=== PATIENT | female | born 1980 | race Caucasian/White ===

== ENCOUNTER → 2017-11-19 12:38 | Outpatient (CLI) | payer SELFPAY ==
[2017-11-19 13:52] LABS: hCG Titer Quant., Serum 43 mIU/mL (<9 non-preg)
== END ==
PROVIDERS: Family Provider Family Medicine; PCP Family Medicine; Visit Provider Obstetrics & Gynecology
DX: Z34.90 Encounter for supervision of normal pregnancy, unspecified, unspecified trimester (principal); Z3A.00 Weeks of gestation of pregnancy not specified
CPT/HCPCS: 36415; 84702

== ENCOUNTER → 2017-11-21 08:42 | Outpatient (CLI) | payer SELFPAY ==
[2017-11-21 09:44] LABS: hCG Titer Quant., Serum 161 mIU/mL (<9 non-preg)
== END ==
PROVIDERS: Family Provider Family Medicine; PCP Family Medicine; Visit Provider Obstetrics & Gynecology
DX: Z34.90 Encounter for supervision of normal pregnancy, unspecified, unspecified trimester (principal); Z3A.00 Weeks of gestation of pregnancy not specified
CPT/HCPCS: 36415; 84702

== ENCOUNTER 2017-12-07 19:52 | Emergency (ER) | payer SELFPAY ==
[2017-12-07 19:53] VITALS: BP 149/77; PULSE 80; RESP 16; TEMP 36.8; O2SAT 99; BMI 27.9
[2017-12-07 22:08] LABS: hCG Titer Quant., Serum 745 mIU/mL (<9 non-preg)
--- NOTE | 2017-12-07 22:29 | ED.DCSUM_ITS ---
- ER Visit Summary Date of Service: 12/07/17 Chief Complaint: and vaginal bleeding History of Present Illness: The patient is a 36 F G 13 P3 Ab9 and 1 ectopic. Patient is early and started having vaginal bleeding today. Past clots and some white tissue. She has had multiple prior miscarriages. She does not believe she is ever been worked up for clotting disorder. She denies any pain. She denies any dysuria. She denies any fever. Physical Examination: Very well-appearing female. Vital signs are stable afebrile. She is in no distress. HEENT exam is unremarkable. Neck nontender no lymphadenopathy. Lungs clear to auscultation bilaterally. Heart regular rhythm no murmur. Abdomen is soft and nontender. Nondistended. Normal bowel sounds. Absolutely no peritoneal signs. Absolutely nontender. She is moving all 4 extremities. Calves are nontender. No edema. Neurologically she is awake and alert with no focal motor deficits. Test Results: Patient's blood type is O+. From prior labs. Her quantitative hCG is only 745. Emergency Department Course and Treatment: We will repeat exams patient had small amount of bleeding and passed more tissue. Again she still not having any pain. Treatment Plan: I spoke with Dr. Ismael Mancera. She will follow the patient up as an outpatient early next week. Again she had the patient discuss further evaluation for why the patient is having multiple miscarriages. Disposition: Discharge Impression: Acute with vaginal bleeding secondary to miscarriage This note was generated with [employer] dictation software. It may contain incorrect words, spelling, and punctuation that were not noted in review of the chart prior to signing ED Disposition - Plan for ED Patient: Chief Complaint: Vag Bld, Preg Referrals: Claude Savage [Primary Care Provider] -
--- NOTE | 2017-12-07 22:29 | ED.DEP ---
ED Disposition - Plan for ED Patient: Disposition: Home or Assisted Living Chief Complaint: Vag Bld, Preg Instructions: ED Miscarriage Incom Referrals: Sharon Jones MD [STAFF PHYSICIAN] - As soon as possible Additional Instructions: Plenty fluids and rest. Motrin Tylenol for pain. Call follow-up Dr. Jones early this coming week. Return to the ER if severe pain, fever or very heavy vaginal bleeding. Most likely this is secondary to another miscarriage. Karen will follow your hormone levels. You need to discuss with her possible further evaluation for why you are having all these miscarriages.
[2017-12-07 22:35] VITALS: BP 114/70; PULSE 64; RESP 18; O2SAT 100
== END 2017-12-07 22:35 | disposition home or self-care (01) ==
PROVIDERS: Emergency Provider Emergency Medicine; Family Provider Family Medicine; PCP Family Medicine
DX: O03.9 Complete or unspecified spontaneous abortion without complication (principal); N96 Recurrent pregnancy loss; O09.529 Supervision of elderly multigravida, unspecified trimester; O09.40 Supervision of pregnancy with grand multiparity, unspecified trimester; Z3A.00 Weeks of gestation of pregnancy not specified
CPT/HCPCS: 84702; 99282

== ENCOUNTER 2022-09-29 13:39 | Emergency (ER) | payer MEDICAID, SELFPAY ==
[2022-09-29 13:40] VITALS: BP 190/96; PULSE 97; RESP 16; TEMP 36.7; O2SAT 100; BMI 28.3
[2022-09-29 15:09] VITALS: BP 180/92; PULSE 80
[2022-09-29 15:31] LABS: Hemoglobin 12.1 g/dL (12.0-15.0); Mean Corp Hgb Conc 32.7 g/dL (32-36); Mean Corpuscular Hgb 29.7 pg (27.0-32.0); Mean Corpuscular Volume 90.9 fL (81-99); Mean Platelet Vol. 8.8 fl (6.2-12.0); Platelet Count 293 K/mm3 (150-450); RBC Distribution Width CV 13.4 % (11.6-14.6); RBC Distribution Width SD 44.7 fl (35.1-43.9); Red Blood Count 4.07 M/mm3 (4.2-5.4); White Blood Count 8.9 K/mm3 (4.4-11.0)
--- NOTE | 2022-09-29 15:31 | US_ITS ---
INDICATION: Vaginal bleeding, enlarged uterus -- HX ENDOMETRIOSIS AND DERMOID CYST -- RIGHT OOPHORECTOMY EXAMINATION: Ultrasound US Transvaginal Non-OB TECHNIQUE: Transvaginal (for optimal evaluation of the adnexa) pelvic ultrasound was performed. Grayscale, spectral waveform, and color flow Doppler evaluation of the adnexa. COMPARISON: None. FINDINGS: UTERUS: Anteverted. The uterus appears heterogeneous and measures 9.9 x 5.4 x 4.8 cm and is tilts to the right. There is no uterine mass. The endometrial stripe is striated and measures 11.3 in AP diameter. Nabothian cysts. RIGHT OVARY: Surgically absent. LEFT OVARY: 5.3 x 4.8 x 4.1 cm. 4.9 x 4.6 x 3.9 cm heterogeneous ovarian cyst. There is normal arterial inflow and venous outflow present in the left ovary. FREE FLUID: None. US/Transvaginal Non- IMPRESSION: 4.9 cm left ovarian cyst may represent endometrioma versus dermoid. Heterogeneous uterine echotexture suggests adenomyosis. Electronically Signed: Kevin Camilo MD at 17:12 EST ,
[2022-09-29 15:47] VITALS: BP 155/100; BP 172/97; BP 174/92; PULSE 71; PULSE 72; PULSE 78
[2022-09-29 15:56] LABS: Internal QC Validated? YES +Cl - CLEAR BKGD; Pregnancy, Serum, hCG Quali. NEGATIVE Negative
--- NOTE | 2022-09-29 16:06 | ED.VIS.FEGU ---
HPI HPI - Female History of Present Illness Chief Complaint: Vag Bleeding Detail of Chief Complaint: Vaginal bleeding x11 days Informant: patient Bleeding Issue: Positive for Vaginal bleeding and Passing clots Onset: Days (Onset 11 days ago) Context: Sudden Onset Timing: Continuous and Waxes and wanes Current Severity: Heavy and - (Patient reports she has gone through 72 pads over the past 11 days.) Maximum Severity: Heavy Associated Symptoms Associated Symptoms: Negative for Dysuria, Frequency, Urgency, Hematuria or Missed Period Last known menstrual period: Menses should have started 11 days ago. Sexually: Positive for Active Control: No control Narrative Narrative: Patient is a 41-year-old woman who presents because of vaginal bleeding, lightheadedness, fatigue and dyspnea on exertion. She has had high blood pressure for several months. She is on no medication. She states her neuroradiologist Dr. Sharon Jones. She is status post left salpingo-oophorectomy. She does not use any form of control. She is sexually active with her . Prior similar symptoms: No Recent Illness/Hospitalization: No PFSH PFS Medical History Hypertension Home Medications vits,calcium no.78-iron fumarate-folic acid 29 mg-1 mg tablet (Prenatabs FA) 1 tab PO DAILY 06/27/15 [History Last Taken 12/07/17 one] methylergonovine 0.2 mg tablet (Methergine) 0.2 mg PO TID 5 days #15 tabs 09/29/22 [Rx Last Taken Unknown] Allergy/AdvReac Type Severity Reaction Status Date / Time No Known Allergies Allergy Verified 09/29/22 13:39 Social History (Updated 09/29/22 @ 16:[address] Nimesh Hussein MD) household members: spouse and children Smoking Status: Never smoker substance use type: does not use ROS ROS ED Constitutional Constitutional ED: Denies chills, fever(s), subjective or sweats Eyes Eyes: Denies blurry vision, change in vision or diplopia ENT ENT ED: Denies ear pain, rhinorrhea or sore throat Cardiovascular Cardiovascular: Denies chest pain, orthopnea, palpitations, paroxysmal nocturnal dyspnea or racing heartbeat Respiratory/Chest Respiratory/Chest: Reports dyspnea on exertion; Denies cough, dyspnea, orthopnea, paroxysmal nocturnal dyspnea or sputum Gastrointestinal Gastrointestinal: Reports abdominal pain; Denies constipation, diarrhea, melena, nausea or vomiting Genitourinary Genitourinary ED: Denies dysuria, hematuria or urinary frequency Musculoskeletal Musculoskeletal: Denies arthralgias, myalgias or neck pain Integumentary Denies Abrasions or rash Neurologic Neurologic: Denies headache(s), paresthesias or weakness Psychiatric Psychiatric: Denies anxiety or depression Endocrine Endocrinology: Denies heat intolerance, polydipsia, polyphagia or polyuria Hematologic/Lymphatic Hematologic/Lymphatic: Denies easy bleeding or easy bruising EXAM Physical Exam Const Vital Signs: 09/29/22 13:40 09/29/22 15:09 09/29/22 15:47 Temperature 98.0 F Temperature Source Temporal Pulse Rate 97 80 Pulse Rate [Lying] 72 Pulse Rate [Sitting (for 1 minute prior to obtaining)] 71 Pulse Rate [Standing (for 1 minute prior to obtaining)] 78 Respiratory Rate 16 Blood Pressure 190/96 H 180/92 H Blood Pressure [Lying] 174/92 H Blood Pressure [Sitting (for 1 minute prior to obtaining)] 172/97 H Blood Pressure [Standing (for 1 minute prior to obtaining)] 155/100 H Blood Pressure Mean 127 121 Blood Pressure Mean [Lying] 119 Blood Pressure Mean [Sitting (for 1 minute prior to obtaining)] 122 Blood Pressure Mean [Standing (for 1 minute prior to obtaining)] 118 Pulse Ox 100 Oxygen Delivery Method Room Air Positive well nourished and well developed General Appearance ED: well developed and NAD; Negative for pallor HEENT Reports TM's clear and moist mucous membranes HEENT Narrative: Head is atraumatic normocephalic. Ears normal. TM normal. Nares patent. Uvula midline. Mucosa moist. Tympanic Membrane ED: Yes TM's clear Eyes PERRL and EOMs intact bilaterally General Eye ED: Negative for pale conjunctiva or scleral icterus Neck no lymphadenopathy, supple and no JVD Chest Wall inspection of chest normal and palpation of chest normal Resp normal respiratory effort and clear to auscultation bilaterally Cardio regular rate, regular rhythm, S1 normal heart sound, no murmurs and no JVD GI soft to palpation, non-distended and no masses; Negative for normal to inspection, nondistended, normoactive bowel sounds Auscultation: hypoactive bowel sounds Palpation: tender LLQ and suprapubic; Negative for hepatomegaly or splenomegaly Back/Spine no CVA tenderness Cervical Spine: Negative for cervical spine tenderness Thoracic Spine / Upper Back: Negative for thoracic spinal tenderness Lumbar Spine / Lower Back: Negative for lumbar spinal tenderness Extremity normal to inspection and full ROM Neuro oriented x3, CN's II-XII intact bilaterally and no sensory deficits noted Sensorium / Orientation: alert Motor Exam: strength 5/5 throughout Psych mental status grossly normal Skin no rashes or lesions noted and no wounds General Skin Exam: Negative for jaundice or pallor MDM MDM MDM Narrative Medical decision making narrative: With abnormal vaginal bleeding will obtain test. Will obtain H&H because patient complains of orthostatic symptoms as well as dyspnea on exertion. Orthostatic vitals were also obtained. Orthostatic vitals are negative. On pelvic exam uterus is tender and slightly enlarged. Patient is actively bleeding. There is no discomfort pressure against the bladder. There is no adnexal mass or fullness noted. Pelvic ultrasound was obtained because on physical exam the bladder felt enlarged and she had significant tenderness. Placed test, laboratory results and ultrasound was discussed with Hilaria nurse practitioner for Dr. Sharon Jones. Plan is Methergine 0.2 mg tablet 3 times a day for the next 5 days. She is to contact office first part of next week. Lab Data Attestation: I reviewed the patient's lab results. Labs: Laboratory Results - last 24 hr 09/29/22 09/29/22 15:23 15:40 WBC 8.9 RBC 4.07 L Hgb 12.1 Hct 37.0 MCV 90.9 MCH 29.7 MCHC 32.7 RDW Std Deviation 44.7 H RDW Coeff of Mehnaz 13.4 Plt Count 293 MPV 8.8 Serum , Qual NEGATIVE Radiography Diagnostic Testing: Clinical Impression(s) from Imaging Studies Transvaginal US 09/29/22 15:31 IMPRESSION: 4.9 cm left ovarian cyst may represent endometrioma versus dermoid. Heterogeneous uterine echotexture suggests adenomyosis. Electronically Signed: Kevin Camilo MD at 17:12 EST , Discharge Plan Triage Chief Complaint: Vag Bleeding ED Provider: Nimesh Hussein Dx/Rx/DC Orders Clinical Impression: Abnormal vaginal bleeding, Cyst of left ovary, Adenomyosis of uterus Instructions: ED Dysfunctional Uterine Bleeding Prescriptions: New methylergonovine [Methergine] 0.2 mg tablet 0.2 mg PO TID 5 Days Qty: 15 0RF No Action vit,[id number] [Prenatabs FA] 1 TABLET tablet 1 tab PO DAILY Primary Care Provider: Care Physician,No Primary Referrals: Sharon Jones MD [Med Staff - Active Staff] - 5-7 Days Care Physician,No Primary [Primary Care Provider] - Disposition Disposition: Home, Self Care
== END 2022-09-29 18:49 | disposition home or self-care (01) ==
PROVIDERS: Emergency Provider Emergency Medicine; Visit Provider Emergency Medicine
DX: N93.9 Abnormal uterine and vaginal bleeding, unspecified (principal); N83.202 Unspecified ovarian cyst, left side; I10 Essential (primary) hypertension; N80.03 Adenomyosis of the uterus; R06.09 Other forms of dyspnea; R10.9 Unspecified abdominal pain
CPT/HCPCS: 76830; 84703; 85027; 99284; A4216

== ENCOUNTER → 2022-11-23 | Outpatient (CLI) | payer MEDICAID, SELFPAY ==
[2022-11-23 16:31] LABS: AST(SGOT) 11 U/L (15-37); Alanine Aminotransfer ALT/SGPT 14 U/L (13-56); Albumin, Serum 3.5 g/dL (3.2-5.0); Alkaline Phosphatase 71 U/L (45-117); Anion Gap 6 (5-15); BUN 11 mg/dL (7-18); Chloride 109 mmol/L (98-107); Creatinine, Serum 0.78 mg/dL (0.55-1.02); EST Glomerular Filtration Rate 85 mL/min (>60); Est Glom Filt Rate - Afr Amer 103 mL/min (>60); Globulin 3.5 g/dL (2.2-4.2); Glucose 121 mg/dL (74-106); Potassium 3.8 mmol/L (3.5-5.1); Sodium Level 140 mmol/L (136-145); T4 Free Direct 0.78 ng/dL (0.76-1.46); Thyroid Stim Hormone (TSH) 1.02 uIU/mL (0.358-3.74)
[2022-12-01 09:09] LABS: Dilute Prothrombin Time (dPT) 35.7 sec (0.0-47.6); Dilute Russell Viper Venom 30.9 sec (0.0-47.0); Factor XI Activity 96 % (60-150); Thrombin Time 20.7 sec (0.0-23.0); dPT Confirm Ratio 0.92 Ratio (0.00-1.34)
[2022-12-01 13:31] LABS: Anti-Cardiolipin Ab, IgA, Qn < 9 APL U/mL (0-11); Anti-Cardiolipin Ab, IgG, Qn < 9 GPL U/mL (0-14); Anti-Cardiolipin Ab, IgM, Qn 11 MPL U/mL (0-12); Beta-2-Glycoprotein I IgA <9 (0-25); Beta-2-Glycoprotein I IgG <9 (0-20); Beta-2-Glycoprotein I IgM <9 (0-32); Factor VIII Activity 33 % (56-140); Interpretation Comment: (.); PTT-LA 40.1 sec (0.0-43.5)
== END | disposition home or self-care (01) ==
LOC: PAVLAB 15:12
PROVIDERS: Referring Provider Registered Nurse; Visit Provider Registered Nurse
DX: N96 Recurrent pregnancy loss (principal); N93.9 Abnormal uterine and vaginal bleeding, unspecified; Z87.59 Personal history of other complications of pregnancy, childbirth and the puerperium
CPT/HCPCS: 36415; 80053; 81240; 84439; 84443; 85240; 85245; 85270; 86146; 86147

== ENCOUNTER → 2023-01-08 | Outpatient (CLI) | payer MEDICAID, SELFPAY ==
--- NOTE | 2023-01-08 | EMB_PTH ---
PATIENT: MAR CURIEL LOC: [facility] #:[id number] AGE/SX: 42/F ROOM: RE01/08/[address]: KAVIN: 1980 BED: DIS: 01/08/2023 SPEC #: [id number] RECD: 01/08/23 16:57 STATUS: ROCHELLE DEBBI #: [id number] DICKSON: 01/08/23 00:[address]: Sharon Jones DEPT: SURGICAL PATHOLOGY RECD BY: Raúl Miranda ENTERED: 01/09/23 09:59 SP TYPE: ENDOM BX/C BRITTANY DR: Marichuy Primary Care Phys Tissues: Endometrium, NOS Procedures: Surgery Specimen Level IV Comments: @ Ordering doctor for SUIV edited from Danilo HERNANDEZ to @ by JEFFERY at 01/09/23 1500 @ Submitting doctor edited from Danilo HERNANDEZ to DR.SMARCA Reynolds by OSMINOD at 01/09/23 1500 HEADER OPERATION: Endometrial biopsy PRE-OP DIAGNOSIS: Abnormal uterine bleeding TISSUE SUBMITTED: Endometrial lining MICROSCOPIC DIAGNOSIS Endometrium, biopsy: Secretory endometrium. AM:michelet 01/10/2023 MICROSCOPIC DESCRIPTION Slides are reviewed. GROSS DESCRIPTION Received is one container labeled with the patient's name and not further designated. The specimen consists of multiple irregular fragments of pink hemorrhagic mucoid tissue that in aggregate measure 2.5 x 1.5 x 0.2 cm. The specimen is totally submitted in one cassette. / SJ:michelet 01/09/2023 TC:5 CPT: 28187
[2023-01-08 16:08] LABS: Hematocrit 40.8 % (37-47); Hemoglobin 13.1 g/dL (12.0-15.0); Mean Corp Hgb Conc 32.1 g/dL (32-36); Mean Corpuscular Hgb 29.3 pg (27.0-32.0); Mean Corpuscular Volume 91.3 fL (81-99); Mean Platelet Vol. 8.9 fl (6.2-12.0); Platelet Count 342 K/mm3 (150-450); RBC Distribution Width CV 14.6 % (11.6-14.6); RBC Distribution Width SD 48.8 fl (35.1-43.9); Red Blood Count 4.47 M/mm3 (4.2-5.4); White Blood Count 9.8 K/mm3 (4.4-11.0)
[2023-01-08 16:27] LABS: AST(SGOT) 12 U/L (15-37); Alanine Aminotransfer ALT/SGPT 18 U/L (13-56); Albumin, Serum 3.5 g/dL (3.2-5.0); Alkaline Phosphatase 89 U/L (45-117); Anion Gap 4 (5-15); BUN 14 mg/dL (7-18); Calcium,Total 8.6 mg/dL (8.5-10.1); Chloride 108 mmol/L (98-107); Creatinine, Serum 0.78 mg/dL (0.55-1.02); EST Glomerular Filtration Rate 86 mL/min (>60); Est Glom Filt Rate - Afr Amer 104 mL/min (>60); Ferritin 12 ng/mL (8-252); Globulin 3.6 g/dL (2.2-4.2); Glucose 106 mg/dL (74-106); Iron 49 ug/dL (50-170); Iron Binding Capacity,Total 349 ug/dL (250-450); Protein, Total 7.1 g/dL (6.4-8.2); Sodium Level 138 mmol/L (136-145)
[2023-01-10 11:17] LABS: Transferrin 297 mg/dL (192-364)
== END | disposition home or self-care (01) ==
PROVIDERS: Registered Nurse
DX: D69.6 Thrombocytopenia, unspecified (principal)
CPT/HCPCS: 36415; 80053; 82728; 83540; 83550; 84466; 85027; 85240; 85245; 87070; 87205; 88305

== ENCOUNTER 2023-01-23 05:25 | Day surgery (SDC) | payer MEDICAID, SELFPAY ==
[2023-01-21 12:57] LABS: Magnesium 2.3 mg/dL (1.6-2.6)
--- NOTE | 2023-01-21 17:25 | PCM.HP.BLA ---
History and Physical [facility] [address] [place] [address] OFFICE VISIT Date of Service:? 01/08/23 MR#: [id number] Acct: [id number] Name:MAR ARORA Rep #: [id number] : 1980 ? ? Provider: Dr. Sharon Jones MD Age/Sex:? 42/F ? ? Location: [facility] Status: Signed Intake Vital Signs ? 12/11/2310:55 01/08/2314:09 01/08/2314:11 Height 5 ft 1 in 5 ft 1 in 5 ft 1 in Weight: ? 167 lb ? BMI ? 31.5 ? BP ? 135/86 H ? Intake Visit Reasons:?LAVH left ovarian cystectomy/medicaid form Needle Valve Operator Required: No Is patient in pain?: No Allergies methylergonovine Allergy (Verified 01/08/23 14:10) Other Medications tranexamic acid 650 mg tablet (Lysteda) 650 mg PO Q8H #20 tabs 11/28/22 [Rx Confirmed 01/08/23] labetalol 100 mg tablet 200 mg PO BID #60 tabs 12/14/22 [Rx Confirmed 01/08/23] Post menopausal: No Patient : No : No [facility] Medical History?(Updated 01/08/23 @ 14:[address] Sharon Jones MD) Hypertension Surgical History? History of salpingo-oophorectomy S/P laparoscopy S/P laparotomy Family History? Grandmother Cervical cancer Social History? household members:? spouse and children number of children:? 3 current occupational exposures/hazards:? No sexually active:? Yes Smoking Status:? Never smoker alcohol intake:? never substance use type:? does not use what type of physical activity do you participate in:? walking seatbelt use:? always do you feel safe at home:? Yes additional social history:? spouse - Cy HPI LAVH left ovarian cystectomy/medicaid form Details: MAR CURIEL is a 42 year old who presents for preop appointment.? she was seen at [facility] and evaluated for willebrands disease and we will be getting recommendations this week regarding surgery.? she has a 4 cm left ovarian cyst possible endometrioma, has had multiple surgeries in the past for endometriosis and has peristent heavy menses failed lysteda. Female Reproductive History Last Menstrual Period: 11/07/22 Cycle Length: 21-35 Bleeding Duration: 7 Questions: metorrhagia: No, sexually active: Yes, dyspareunia: No and PCB: No Menopausal Symptoms: No hot flashes, No night sweats, No weight change, No mood changes, No difficulty concentrating, No sleep problems and No change in libido History ? ? ? 17 ? Elective abortions ? Hx Para ? ? ? 3 ? Spontaneous abortions ? Hx # Term Pregnancies ? Ectopic pregnancies ? Hx # Pregnancies ? Multiple births ? # of living children ? Past Pregnancies Del. Date Name GA/Weeks Outcome Route Bth Weight Gen Labor Lgth Anesthesia Del Locatn Provider FOB Unknown Janice - 1995 ? Unknown Vidal 2007 ? Unknown Sharon - 2014 ? ROS Const Constitutional: Denies night sweats ENT ENT: Reports system reviewed and no additional complaints, except as documented Cardio Card: Denies chest pain Resp Resp: Denies cough or dyspnea GI GI: Reports as per HPI; Denies constipation, nausea or vomiting : Denies hot flashes or nipple discharge Musc Musc: Denies arthralgias, back pain or muscle weakness Skin Skin/Breast: Denies alopecia, change in hair, dry skin, breast mass, breast pain, breast skin changes or nipple discharge Neuro Neuro: Reports system reviewed and no additional complaints, except as documented Psych Psych: Denies change in libido or difficulty concentrating Endo Endo: Denies cold intolerance, excessive sweating, heat intolerance or polydipsia Omar/Lymph Hematologic/Lymphatic: Denies easy bleeding, Denies easy bruising and Denies lymphadenopathy Exam Const General: cooperative, healthy appearing, comfortable, no acute distress and well developed Orientation: alert HENCO Head: normal to inspection and normocephalic Ears: hearing grossly normal bilaterally and external ears normal Nose: external nose normal and nares normal Face and sinus: normal facial exam Neck Neck: normal visual inspection and no lymphadenopathy Thyroid: thyroid normal Chest Chest palpation & inspection: normal inspection of the chest Resp Effort & Inspection: normal respiratory effort Auscultation: clear to auscultation bilaterally Cardio Rate: regular rate Rhythm: regular rhythm Heart Sounds: S1 normal and S2 normal GI Inspection: normal to inspection and non-distended Palpation: soft and no hepatosplenomegaly General: bladder normal to palpation External Female Exam: normal external appearance and normal appearance of the urethra Urethra: normal appearance of the urethra, normal palpation and no discharge Speculum Exam - Vagina: normal appearance of the vagina and normal vaginal discharge Speculum Exam - Cervix: normal appearance of the cervix and nontender Bimanual Exam- Vagina & Uterus: normal bimanual exam, uterine size normal, bladder normal to palpation, uterine shape normal, No tender, uterine mobility normal, consistency normal, normal palpation and non-tender Bimanual Exam- Adnexa, other: normal adnexae, adnexae mobile, no masses and normal Pelvic Support: normal Musc Other: gross motor intact no deficits, full bilateral strength Skin General: no rashes or lesions noted Neuro General: patient alert, patient awake, moves all extremities and no focal motor deficits Motor: muscle tone normal throughout Extrem General: normal to inspection and no pedal edema Psych Appearance: grossly normal Mental Status: mental status grossly normal Affect: normal affect Speech and Movement: speech and movement normal Office Procedures Endometrial Biopsy Endometrial Biopsy Test: Yes Negative Time out checklist: patient, procedure, site marked/identified, positioning of patient, supplies available, allergies confirmed and team agrees on procedure Time out time: 14:39 tenaculum used: No dilator used: No Details: Cervix prepped with betadine and pipelle inserted into uterus without complication. Specimen obtained and sent to lab for analysis. All instruments removed from vagina without complications. Excellent hemostasis noted. Coding Level of Care Code No Charge Diagnoses Von Willebrand disease? D68.00 Previous miscarriage without ? Z87.59 Endometriosis? N80.9 Hypertension? I10 CPT Codes Endometrial Biopsy (94672) Assessment and Plan Assessment and Plan (1) Von Willebrand disease: ?Status:?Acute ?Comment: hematology referral- [facility], await recommendations for clearance for surgery. (2) Previous miscarriage without : ?Status:?Acute ?Comment: APL panel negative (3) Endometriosis: ?Status:?Acute ?Comment: emb done. endometrioma 4 cm on left ovary, heavy painful menses, history of multiple laparoscopies.? proceed with LAVH left ovarian cystectomy possible oophorectomy. (4) Hypertension: ?Status:?Chronic ?Comment: on labetalol, told to increase to 200 BID and refer to PCP. stable. ? ? ? Orders: Orders Endometrial Biopsy Today N80.9 - Endometriosis, unspecified ? POC Urine Today N80.9 - Endometriosis, unspecified ? Plan After discussing the patient's diagnosis and treatment plan options, patient wishes to proceed with surgical management.? I have discussed with the patient the risks, benefits, and alternatives of the procedure which include but are not limited to risks of anesthesia, bleeding, infection, possible damage to bowel, bladder, or surrounding vasculature which could lead to additional surgery to evaluate any complications.? Patient agrees to procedure and wishes to proceed.? ACOG/uptodate references given for additional information regarding procedure.? plan to give 1000mg IV TXA prior to procedure within an hour per [facility] recommendations and TXA script given by them for postop care
[2023-01-23] VITALS (10 sets, daily range): BP systolic 115–156; BP diastolic 61–100; PULSE 60–81; RESP 16–18; TEMP 36.2–36.9; O2SAT 99–100; BMI 33.0
[2023-01-23] MEDS: Lactated Ringers 1,000 ML 40 ML IV (06:20)
[2023-01-23] MEDS: Magnesium 1 GM over 15 mins IV (06:21)
[2023-01-23 06:22] LABS: Absolute Lymphocyte Count 2.13 X10^3/uL (0.83-4.51); Absolute Neutrophil Count 4.4 X10^3/uL (2.0-7.7); Basophil# 0.05 X10^3/uL; Basophil% 0.7 % (0-1); Eosinophil# 0.39 X10^3/uL; Eosinophils% 5.2 % (0-5); Hematocrit 39.4 % (37-47); Hemoglobin 12.5 g/dL (12.0-15.0); Lymphocyte # 2.13 X10^3/ul (0.83-4.51); Lymphocyte % 28.6 % (19-41); Mean Corp Hgb Conc 31.7 g/dL (32-36); Mean Corpuscular Volume 91.4 fL (81-99); Mean Platelet Vol. 8.9 fl (6.2-12.0); Monocyte# 0.45 X10^3/uL; NRBC Flagged by Analyzer 0 % (0-5); Neutrophil # 4.41 X10^3/uL (2.7-7.7); Neutrophil % 59.4 % (47-70); Platelet Count 307 K/mm3 (150-450); RBC Distribution Width CV 15.9 % (11.6-14.6); RBC Distribution Width SD 53.6 fl (35.1-43.9); Red Blood Count 4.31 M/mm3 (4.2-5.4); White Blood Count 7.4 K/mm3 (4.4-11.0)
[2023-01-23] MEDS: Phenazopyridine 95 MG Tablet 190 MG PO (06:23)
[2023-01-23] MEDS: Acetaminophen 500 MG Tablet 1000 MG PO (06:24)
[2023-01-23] MEDS: Celecoxib 200 MG Capsule 400 MG PO (06:24)
[2023-01-23] MEDS: Scopolamine 1mg/72hr Patch 1 PATCH TD (06:25)
[2023-01-23] MEDS: Gabapentin 600 MG Tablet PO (06:25)
[2023-01-23 06:29] LABS: Internal QC Validated? YES +Cl - CLEAR BKGD; Pregnancy, Urine Negative Negative
[2023-01-23] MEDS: dexAMETHasone 4 MG/ML Vial 8 MG IV (06:36)
[2023-01-23 06:45] LABS: Bedside Glucose 102 mg/dL (74-106)
[2023-01-23] MEDS: Cefazolin 2 GM in 0.9% Normal Saline 100 ML IV (07:28)
--- NOTE | 2023-01-23 07:28 | OP.PCM_ITS ---
Problems Associated Problem List Diagnoses (1) Hypertension: (2) Von Willebrand disease: (3) Endometriosis: (4) Previous miscarriage without : (5) S/P laparoscopic assisted vaginal hysterectomy (LAVH): Report of Operation Date of Procedure: 01/23/23 Pre-Operative Diagnosis: AUB enodmetriosis Post-Operative Diagnosis: same Surgery/Procedure Performed:: ROSSY Description of Surgical Findings:: omental to anterior abdominal wall adhesions enlarged uterus pelvis congestion very thick tissue and increased vasculature Surgeon: Sharon Jones subway car repairer: Nida Rivera Type of Anesthesia: General Specimen's removed: uterus, left tube and ovary Drains: colin Fluids Replaced: crystalloid Description of Procedure: Patient received preoperative antibiotics and SCDs were on preoperatively. Patient was taken back to the operating room and placed in the dorsal lithotomy position. General anesthesia was induced and patient was prepped and draped in normal sterile fashion. Uterine manipulator was placed inside the uterus and Colin catheter placed in the bladder. The umbilicus was grasped with towel clamps and an intraumbilical incision was made after injecting with quarter percent Marcaine and a Veress needle entered into the abdomen confirmed to be intra-abdominal with a low opening pressure. Abdomen was insufflated with CO2 gas and the Veress needle removed and the 5 mm trocar was placed under direct visualization without complication. Right and left lower quadrants were transilluminated and injected with quarter percent Marcaine and 5 mm ports placed under direct visualization. Pelvis was well visualized see operative findings for additional information. left IP ligament was transected with the ligasure device and then carried down to the level of the uterine corpus, The broad ligament was opened up by transecting the round ligament bilaterally and skeletonizing the uterine vessels bilaterally and creating a bladder flap using the LigaSure device. The uterine arteries were transected bilaterally with good visualization of the bladder and the ureters were seen to be inferior lateral to the operative area. Attention was then paid to the vaginal portion of the procedure and the cervix was grasped with Cornelia clamps and circumferentially injected with dilute vasopressin. A circumferential incision was made and the vaginal mucosa was mobilized off posteriorly and the cul-de-sac entered into sharply and a longneck speculum placed. The anterior cul-de-sac was then identified and entered into sharply. The uterosacral ligaments were clamped cut and suture ligated with 0 Monocryl bilaterally followed by the cardinal ligaments which were clamped cut and suture ligated bilaterally with 0 Monocryl. The uterus serially descended and was removed without difficulty. Pelvic sidewall pedicles were checked and noted to have excellent hemostasis. posterior peritoneum closed and addditional suture of the right cuff was done for hemostasis. The vaginal mucosa was reapproximated incorporating the posterior peritoneum. This was reapproximated using 0 Vicryl [id number] sutures. Excellent hemostasis was noted. The pelvis and cul-de-sac were well visualized and no significant active bleeding noted but some raw areas over the bladder peritoneum were seen and therefore floseal was applied. Pressure was taken down and the areas visualized and noted of excellent hemostasis. All ports were removed under direct visualization without complication and the abdomen was desufflated of air. The instruments were removed from the abdomen and the vaginal sweep was negative. Port sites on the abdomen were closed with 4-0 Monocryl interrupted sutures and Steri's and windows were applied. She was awoken and taken recovery in stable condition. Grafts/Implants Used: none Complications none Admit VTE Documentation VTE Present on Admission: No VTE Mechan Device Prophylaxis: SCD's VTE Pharm Prophylaxis ordered?: Yes Procedures Urinary/Genital 52xxx-59xxx: 70417 LAVH+BS/O <250gr Uterus
--- NOTE | 2023-01-23 07:30 | HYST_PTH ---
PATIENT: MAR CURIEL [place] [facility] [id number] AGE/SX: 42/F ROOM: RE01/23/[address]: Dr. Sharon Jones MD : 1980 BED: DIS: 01/23/2023 SPEC #: [id number] RECD: 01/23/23 11:25 STATUS: ROCHELLE DEBBI #: [id number] DICKSON: 01/23/23 07:[address]: Sharon Jones DEPT: SURGICAL PATHOLOGY RECD BY: Carolynn Upton ENTERED: 01/23/23 12:05 SP TYPE: HYSTERECT OTHR DR: No Primary Care Phys Tissues: Uterus, NOS Procedures: Surgery Specimen Level V HEADER OPERATION: ERAS, hysterectomy, LAVH, oophorectomy, salpingectomy PRE-OP DIAGNOSIS: Von Willebrand disease, previous miscarriage, endometriosis, hypertension TISSUE SUBMITTED: Uterus, cervix, left fallopian tube, left ovary MICROSCOPIC DIAGNOSIS Uterus, hysterectomy: Cervix ? nabothian cysts and chronic inflammation. Endometrium ? proliferative endometrium with chronic endometritis and recent mucosal hemorrhage. Myometrium ? focal superficial adenomyosis. Left ovary ? follicular and corpus luteal cysts. Left fallopian tube ? benign paratubal cysts. AM:michelet 01/25/2023 MICROSCOPIC DESCRIPTION Slides are reviewed. GROSS DESCRIPTION Received in fixative is one container labeled with the patient's name and designated uterus. The specimen consists of a uterus with attached cervix and attached left fallopian tube and ovary. The uterus with cervix measures 10.0 x 7.5 x 4.5 cm and weighs 137.9 gm. The endocervical canal measures 3.6 cm in length and is grossly unremarkable. The triangular endometrial cavity measures 3.5 x 3.0 cm. The reddish-rosario velvety endometrium measures up to 0.2 cm in thickness. The myometrium measures 2.0 cm in average thickness and is free of mass lesions. The smooth, glistening cystic ovary measures 3.5 x 3.0 x 1.6 cm. Serial sections reveal multiple cysts containing clear fluid. The cysts range in size from 0.2 to 1.3 cm in greatest dimension. The adjacent fallopian tube measures 4.6 cm in length and 0.8 cm in average diameter. Meat Service Team Member sections are submitted as follows: 1 - anterior cervix, 2 - posterior cervix, 3 & 4 - anterior uterine wall, 5 & 6 - posterior uterine wall, 7-9 - ovary, 10 - fallopian tube. / AM:michelet 01/23/2023 TC:5 CPT: 53124
--- NOTE | 2023-01-23 07:31 | DCINST_ITS ---
Discharge Instructions Diet Discharge Diet: No restrictions Activity May resume sexual activity in: 6 weeks Weight Bearing Status: Full weight bearing Dressing / Incision Call your doctor if your incision/area has: Continuous Slow Oozing, Sudden Increased Bleeding, Increased Pain/ Swelling, Increased Redness and Foul Smelling Discharge Call your doctor if you observe: Fever of 101 or Higher, Using more than 1 pad per hour, Shortness of breath, Chest pain and Uncontrolled pain Suture Line Care: Avoid Pulling/Pushing and Avoid Pinching/Bending Remove Dressing in: 1 week (if present) Cleanse incision/area with: Soap & Water and Keep Dressing Clean & Dry Follow Up Care Please Follow Up With: Sharon Jones MD When: Call to make an appointment with your doctor for a postop visit in 2 and 6 weeks. Test Results: Test results from this visit will be discussed in further detail at your follow- up appointment, if applicable. Discharge Plan Admission Attending Provider: Sharon Jones Primary Care Provider: Care Physician,Marichuy Primary Discharge Orders/Prescriptions Prescriptions: New oxycodone-acetaminophen [Percocet] 5-325 mg tablet 1 tab PO Q6H PRN (Reason: pain) 7 Days Qty: 20 0RF naproxen [naproxen] 500 mg tablet 500 mg PO BID PRN PRN (Reason: Pain) Qty: 30 1RF Continued ferrous sulfate 325 mg (65 mg iron) Tablet 325 mg PO QODAY labetalol 100 mg tablet 200 mg PO BID Qty: 60 2RF Discontinued medroxyprogesterone 5 mg tablet 5 mg PO .COMPLEX Qty: 30 0RF Rx Instructions: 5 mg PO bid x 3 days then once daily Referrals / Follow Up: Care Physician,No Primary [Primary Care Provider] - Disposition Disposition (needs filled in before D/C Order can be placed): Home, Self Care
[2023-01-23] MEDS: Bupivacaine 0.25% 30 ML Vial (08:15)
[2023-01-23] MEDS: Vasopressin 20 UNITS/ML Vial (09:15)
[2023-01-23] MEDS: Ketorolac 30 MG/ML Syringe IV (13:00)
[2023-01-23 13:39] LABS: Hematocrit 41.1 % (37-47); Hemoglobin 12.8 g/dL (12.0-15.0); Mean Corp Hgb Conc 31.1 g/dL (32-36); Mean Corpuscular Hgb 28.8 pg (27.0-32.0); Mean Corpuscular Volume 92.6 fL (81-99); Mean Platelet Vol. 8.8 fl (6.2-12.0); Platelet Count 316 K/mm3 (150-450); RBC Distribution Width CV 15.9 % (11.6-14.6); RBC Distribution Width SD 54.2 fl (35.1-43.9); Red Blood Count 4.44 M/mm3 (4.2-5.4); White Blood Count 14.3 K/mm3 (4.4-11.0)
== END 2023-01-23 14:17 | disposition home or self-care (01) ==
LOC: SDC 05:25 → AC 05:26
PROVIDERS: Referring Provider Obstetrics & Gynecology; Visit Provider Obstetrics & Gynecology
PROC: 0UT9FZZ Resection of Uterus, Via Natural or Artificial Opening With Percutaneous Endoscopic Assistance (ICD-10-PCS; CPT 58552; principal; 2023-01-23 07:05)
DX: N80.03 Adenomyosis of the uterus (principal); D68.00 Von Willebrand disease, unspecified; N83.12 Corpus luteum cyst of left ovary; N83.02 Follicular cyst of left ovary; N71.1 Chronic inflammatory disease of uterus; N72 Inflammatory disease of cervix uteri; N88.8 Other specified noninflammatory disorders of cervix uteri; N83.8 Other noninflammatory disorders of ovary, fallopian tube and broad ligament; I10 Essential (primary) hypertension; Z79.899 Other long term (current) drug therapy
CPT/HCPCS: 58552; 36415; 81025; 82962; 83735; 85025; 85027; 86850; 86900; 86901; 88307; J7120; J2405; J3475

== ENCOUNTER 2023-02-07 04:12 | Emergency (ER) | payer MEDICAID, SELFPAY ==
[2023-02-07 04:13] VITALS: BP 169/97; PULSE 77; RESP 15; TEMP 36.7; O2SAT 98; BMI 32.2
--- NOTE | 2023-02-07 04:40 | CT_ITS ---
INDICATION: Abdominal pain, postop hysterectomy and bladder reconstruction 01/26/2023, vaginal bleeding. EXAMINATION: CT Abdomen And Pelvis W/ Contrast Injection TECHNIQUE: Helically acquired images were obtained of the abdomen and pelvis following IV contrast. 2-D reconstructions reviewed. A radiation dose optimization technique was used for this scan. IV Contrast dosage and agent: 100 cc Isovue-370 Oral contrast: None. COMPARISON: None. FINDINGS: LOWER CHEST: No acute findings within the imaged lung bases. Heart size within normal limits. LIVER: Several subcentimeter low-attenuation lesions within liver. GALLBLADDER AND BILIARY TREE: No calcified gallstones identified. No gallbladder wall edema demonstrated. No significant biliary ductal dilation. PANCREAS: No discrete mass or peripancreatic edema. SPLEEN: Normal size without focal cystic or solid mass. ADRENAL GLANDS: Unremarkable. KIDNEYS AND URETERS: Normal renal size and position. No perinephric edema or hydronephrosis. No concerning lesion. PERITONEUM: Trace free pelvic fluid. No peritoneal free air detected. BOWEL: Normal appendix medial to cecum within right lower quadrant. No bowel obstruction. Scattered colonic diverticula. Mildly thickened sigmoid colon. LYMPH NODES: No enlarged mesenteric or retroperitoneal lymph nodes. VESSELS: Mild atherosclerosis. URINARY BLADDER: Mild thickening urinary bladder wall, most prominent posteriorly. REPRODUCTIVE ORGANS: Status post partial hysterectomy. There are few ill-defined, rim-enhancing fluid collections within pelvis extending from level of vaginal cuff along bilateral adnexa. Largest collection centered right of midline above vaginal cuff measures 3.7 x 1.4 cm axial diameter and approximately 6 cm craniocaudal length. Collection extending along left adnexa measures 1.3 cm axial diameter and approximately 5 cm craniocaudal length. ABDOMINAL WALL: Lower abdominal hernia repair mesh in place. BONES: Mild degenerative disc space narrowing at L5-S1. CT/Abdomen/Pelvis W IV Cont ONLY IMPRESSION: 1. Pelvic abscesses extending from postoperative vaginal cuff into bilateral adnexa. 2. Likely reactive thickening of adjacent urinary bladder and sigmoid colon, with superimposed cystitis and colitis not excluded. 3. There is colonic diverticulosis but thickening of sigmoid colon does not appear to be related to diverticulitis, within limitations of regional infectious changes described above. 4. Indeterminate small low-attenuation liver lesions. Favor benign cysts but follow-up as clinically warranted. Electronically Signed: Ismael Catalan MD at 6:32 EDT ,
[2023-02-07] MEDS: 0.9% Normal Saline 1,000 ML 999 ML IV (04:50)
[2023-02-07 05:06] LABS: Absolute Lymphocyte Count 2.43 X10^3/uL (0.83-4.51); Absolute Neutrophil Count 5.5 X10^3/uL (2.0-7.7); Basophil# 0.15 X10^3/uL; Basophil% 1.5 % (0-1); Eosinophils% 13.9 % (0-5); Hematocrit 39.2 % (37-47); Hemoglobin 12.3 g/dL (12.0-15.0); Lymphocyte # 2.43 X10^3/ul (0.83-4.51); Lymphocyte % 24.2 % (19-41); Mean Corp Hgb Conc 31.4 g/dL (32-36); Mean Corpuscular Hgb 28.6 pg (27.0-32.0); Mean Corpuscular Volume 91.2 fL (81-99); Monocyte# 0.51 X10^3/uL; Monocyte% 5.1 % (0-10); NRBC Flagged by Analyzer 0 % (0-5); Neutrophil # 5.54 X10^3/uL (2.7-7.7); Neutrophil % 55.1 % (47-70); Platelet Count 336 K/mm3 (150-450); RBC Distribution Width CV 15.1 % (11.6-14.6); RBC Distribution Width SD 50.5 fl (35.1-43.9); White Blood Count 10.1 K/mm3 (4.4-11.0)
[2023-02-07 05:17] LABS: International Normalized Ratio 0.9; Prothrombin Time (Protime)PT. 12.6 SECONDS (11.7-14.9)
[2023-02-07 05:18] LABS: Anion Gap 3 (5-15); BUN 20 mg/dL (7-18); BUN/Creat Ratio 28.7 RATIO (10-20); Calcium,Total 8.6 mg/dL (8.5-10.1); Chloride 111 mmol/L (98-107); EST Glomerular Filtration Rate 98 mL/min (>60); Est Glom Filt Rate - Afr Amer 118 mL/min (>60); Glucose 99 mg/dL (74-106); Potassium 4.7 mmol/L (3.5-5.1); Sodium Level 141 mmol/L (136-145)
[2023-02-07 06:12] VITALS: BP 159/89; PULSE 63; RESP 15; O2SAT 100
--- NOTE | 2023-02-07 07:54 | ED.VIS.FEGU ---
HPI HPI - Female History of Present Illness Chief Complaint: Vag Bleeding Narrative Narrative: Patient is a 42-year-old female with past medical history of hypertension and von Willebrand's disease currently on TXA. She had her uterus removed and bladder reconstruction on January 26. She states she has been doing well and at her postop follow-up the other day and her Steri-Strips were removed. She states starting last night into this morning she went from having a little bit of pink blood-tinged with wiping to gato bleeding from her vagina. She states because of her history of an Willebrand's disease she is concerned that she could have large volumes of blood loss leading to need for transfusion and with this comes in for evaluation. PFSH PFS Medical History Anxiety Blood disorder Depression Former smoker History of inguinal hernia Hypertension Low iron Home Medications labetalol 100 mg tablet 200 mg PO BID #60 tabs 12/14/22 [Rx Last Taken 01/23/23 04:45] ferrous sulfate 325 mg (65 mg iron) tablet 325 mg PO QODAY 01/16/23 [History Last Taken Unknown] naproxen 500 mg tablet 500 mg PO BID PRN PRN Pain #30 tabs 01/23/23 [Rx Last Taken Unknown] estradiol 0.1 mg/24 hr semiweekly transdermal patch (Vivelle-Dot) 1 patch transdermal 2XW #8 ea 02/06/23 [Rx Last Taken Unknown] tranexamic acid 650 mg tablet 1,300 mg PO TID 02/07/23 [History Last Taken Unknown] Allergy/AdvReac Type Severity Reaction Status Date / Time methylergonovine Allergy Other Verified 02/06/23 14:04 Family History Grandmother Cervical cancer Surgical History History of salpingo-oophorectomy S/P laparoscopic assisted vaginal hysterectomy (LAVH) (~01/23/23) S/P laparoscopy S/P laparotomy Social History household members: spouse and children number of children: 3 current occupational exposures/hazards: No sexually active: Yes Smoking Status: Former smoker alcohol intake: never substance use type: does not use what type of physical activity do you participate in: walking seatbelt use: always do you feel safe at home: Yes additional social history: spouse - Cy ROS ROS ED Constitutional Constitutional ED: Denies chills or fever(s) Eyes Eyes: Denies change in vision ENT ENT ED: Denies sore throat Cardiovascular Cardiovascular: Denies chest pain Respiratory/Chest Respiratory/Chest: Denies cough or dyspnea Gastrointestinal Gastrointestinal: Denies abdominal pain, diarrhea, nausea or vomiting Genitourinary Genitourinary ED: Reports other Details: Positive vaginal bleeding ; Denies dysuria Musculoskeletal Musculoskeletal: Denies myalgias Integumentary Denies rash Neurologic Neurologic: Denies headache(s) Hematologic/Lymphatic Hematologic/Lymphatic: Reports easy bleeding and easy bruising EXAM Physical Exam Const Vital Signs: 02/07/23 04:13 02/07/23 06:12 Temperature 98.1 F Temperature Source Oral Pulse Rate 77 63 Respiratory Rate 15 15 Blood Pressure 169/97 H 159/89 H Blood Pressure Mean 121 112 Pulse Ox 98 100 Oxygen Delivery Method Room Air Room Air Positive well nourished and well developed General Appearance ED: well developed; Negative for pallor HEENT Reports moist mucous membranes Eyes PERRL and EOMs intact bilaterally General Eye ED: Negative for pale conjunctiva Neck supple Resp normal respiratory effort and clear to auscultation bilaterally Cardio regular rate and regular rhythm Rate: other Other Details: Radial pulses are plus 2 out of 4 bilaterally are equal and symmetric GI normal to inspection, nondistended, normoactive bowel sounds, soft to palpation, non-tender, non-distended and no masses GI Narrative: No voluntary guarding or rigidity no pulsatile mass or pain with palpation Auscultation: normoactive bowel sounds Palpation: soft Back/Spine no CVA tenderness Extremity normal to inspection Extremity Narrative: No asymmetric edema no pitting edema negative Homans' sign bilaterally Neuro oriented x3 and CN's II-XII intact bilaterally Sensorium / Orientation: alert Psych mental status grossly normal Skin no rashes or lesions noted Skin Narrative: Capillary refills less than 3 seconds General Skin Exam: Negative for pallor MDM MDM MDM Narrative Medical decision making narrative: Patient presented to the ER hypertensive but has a past medical history of this and otherwise vitals are stable. She reported increasing bright red blood per vagina status post surgery. With history of von Willebrand's disease there is concern that she is having development of a hematoma or acute blood loss anemia and secondary to this basic labs were ordered. Hemoglobin and hematocrit are stable platelets are normal as well as bleeding time. A CT was added because of her Willebrand's disease and questions fluid in the pericolic gutters near the vaginal cuff and radiology has concern of this could be abscess formation. Patient does not have a fever nor does she have a white count nor is her pain with palpation on exam and therefore my concern for an abscess is extremely low. I discussed the case however with BENEFITS SPECIALIST on-call. They state that they will need to come in and do a pelvic exam to ensure the bleeding is under control and that there are no secondary changes to suggest this is an infectious process especially with the radiologist read. Therefore BENEFITS SPECIALIST evaluated the patient in the ER and after doing so they feel comfortable with her going home and she can continue to follow-up on an outpatient basis as she is not in need of a blood transfusion and her platelets and bleeding times are normal History & Record Review Discussion w/independent historian: Patient Lab Data Attestation: I reviewed the patient's lab results. Labs: Laboratory Results - last 24 hr 02/07/23 02/07/23 02/07/23 04:54 04:54 04:54 WBC 10.1 RBC 4.30 Hgb 12.3 Hct 39.2 MCV 91.2 MCH 28.6 MCHC 31.4 L RDW Std Deviation 50.5 H RDW Coeff of Mehnaz 15.1 H Plt Count 336 MPV 9.0 Immature Gran % (Auto) 0.200 Neut % (Auto) 55.1 Lymph % (Auto) 24.2 [place] % (Auto) 5.1 Eos % (Auto) 13.9 H Baso % (Auto) 1.5 H Absolute Neuts (auto) 5.5 Absolute Lymphs (auto) 2.43 Nucleated RBC % 0 PT 12.6 INR 0.9 APTT 30.0 Sodium 141 Potassium 4.7 Chloride 111 H Carbon Dioxide 27.0 Anion Gap 3 L BUN 20 H Creatinine 0.70 Estim Creat Clear Calc 78.20 Est GFR (MDRD) Af Amer 118 Est GFR (MDRD) Non-Af 98 BUN/Creatinine Ratio 28.7 H Glucose 99 Calcium 8.6 Radiography Diagnostic Testing: Clinical Impression(s) from Imaging Studies Abdomen/Pelvis CT 02/07/23 04:40 IMPRESSION: 1. Pelvic abscesses extending from postoperative vaginal cuff into bilateral adnexa. 2. Likely reactive thickening of adjacent urinary bladder and sigmoid colon, with superimposed cystitis and colitis not excluded. 3. There is colonic diverticulosis but thickening of sigmoid colon does not appear to be related to diverticulitis, within limitations of regional infectious changes described above. 4. Indeterminate small low-attenuation liver lesions. Favor benign cysts but follow-up as clinically warranted. Electronically Signed: Ismael Catalan MD at 6:32 EDT , Management Discussion w/another healthcare provider: Sleeve Separator Discharge Plan Triage Chief Complaint: Vag Bleeding ED Provider: Chente Ray Dx/Rx/DC Orders Clinical Impression: Von Willebrand disease, Postoperative vaginal bleeding, Hypertension Prescriptions: No Action estradiol [Vivelle-Dot] 0.1 mg/24 hr patch semiweekly 1 patch transdermal 2XW Qty: 8 12RF Rx Instructions: apply 1 patch for 3 days alternating with 1 patch for 4 days each week ferrous sulfate 325 mg (65 mg iron) Tablet 325 mg PO QODAY naproxen [naproxen] 500 mg tablet 500 mg PO BID PRN PRN (Reason: Pain) Qty: 30 1RF tranexamic acid 650 mg tablet 1,300 mg PO TID Label Comments: TAKE 2 TABLETS BY MOUTH THREE TIMES DAILY. START AFTER SURGERY labetalol 100 mg tablet 200 mg PO BID Qty: 60 2RF Primary Care Provider: Care Physician,No Primary Referrals: Sharon Jones MD [Med Staff - Active Staff] - Care Physician,No Primary [Primary Care Provider] - Activity Restrictions/Additional Instructions: Please continue your medication as directed by your doctor and follow-up with your BENEFITS SPECIALIST/surgeon to discuss further evaluation. If you have any further concerns or worsening of symptoms please return the hospital for repeat evaluation Disposition Disposition: Home, Self Care
[2023-02-07 08:00] VITALS: RESP 14
[2023-02-07] MEDS: FERRIC SUBSULFATE 8 GM SOLN TOPICAL (08:18)
--- NOTE | 2023-02-07 08:21 | CON.PCM.OB_ITS ---
Assessment & Plan (1) Postoperative vaginal bleeding: PLAN: I believe the collections in the pelvis are clotted areas of blood and floseal that can be easily mistaken to be abscesses. Based on her clinical picture, the plan is to be cautiously aware of the areas on CT that radiology is diagnosing as abscess. recommend rest after the application of Monsel's soln was applied and stopped the bleeding. She will call me if further bleeding happens. Bleeding and infection precautions discussed. recommend repeating scan when comes in for post op visit in 4 more weeks or sooner as needed for further bleeding HPI Consult Data Date of Consult: 02/07/23 HPI Narrative HPI Narrative: MAR CURIEL, is a 42 y/o who presents to [facility] ER with vaginal bleeding that started early this am at home. She is 2 weeks status post hysterectomy and bladder sling with Tracee Benson and Karen. She has newly diagnosed VonWil lebrand's disease and is being treated for any kind of bleeding with TXA per her filter tank tender helper head. She is not on DDAVP at this time. She denies fevers, chills, nausea, vomiting, or diarrhea. She is smiling and sitting up in bed. She states that she has had to change her pad once since being seen in ER this am. On operative note, Dr. nunn notes using floseal for some raw bleeding edges on the peritoneum. This is significant as the CT shows the following: REPRODUCTIVE ORGANS: Status post partial hysterectomy. There are few ill-defined, rim-enhancing fluid collections within pelvis extending from level of vaginal cuff along bilateral adnexa. Largest collection centered right of midline above vaginal cuff measures 3.7 x 1.4 cm axial diameter and approximately 6 cm craniocaudal length. Collection extending along left adnexa measures 1.3 cm axial diameter and approximately 5 cm craniocaudal length. ABDOMINAL WALL: Lower abdominal hernia repair mesh in place. BONES: Mild degenerative disc space narrowing at L5-S1. CT/Abdomen/Pelvis W IV Cont ONLY IMPRESSION: ? 1.? Pelvic abscesses extending from postoperative vaginal cuff into bilateral adnexa. 2.? Likely reactive thickening of adjacent urinary bladder and sigmoid colon, with superimposed cystitis and colitis not excluded. 3.? There is colonic diverticulosis but thickening of sigmoid colon does not appear to be related to diverticulitis, within limitations of regional infectious changes described above. 4.? Indeterminate small low-attenuation liver lesions. Favor benign cysts but follow-up as clinically warranted. since the patinet does not have a white count and is not symptomatic, I do not believe she has a pelvic abscess at this time. I believe the collections in the pelvis are clotted areas of blood and floseal that can be easily mistaken to be abscesses. Based on her clinical picture this does not appear to be the case. [facility] Medical History Anxiety Blood disorder Depression Former smoker History of inguinal hernia Hypertension Low iron Home Medications labetalol 100 mg tablet 200 mg PO BID #60 tabs 12/14/22 [Rx Last Taken 01/23/23 04:45] ferrous sulfate 325 mg (65 mg iron) tablet 325 mg PO QODAY 01/16/23 [History La st Taken Unknown] naproxen 500 mg tablet 500 mg PO BID PRN PRN Pain #30 tabs 01/23/23 [Rx Last Taken Unknown] estradiol 0.1 mg/24 hr semiweekly transdermal patch (Vivelle-Dot) 1 patch transdermal 2XW #8 ea 02/06/23 [Rx Last Taken Unknown] tranexamic acid 650 mg tablet 1,300 mg PO TID 02/07/23 [History Last Taken Unknown] Allergy/AdvReac Type Severity Reaction Status Date / Time methylergonovine Allergy Other Verified 02/06/23 14:04 Family History Grandmother Cervical cancer Surgical History History of salpingo-oophorectomy S/P laparoscopic assisted vaginal hysterectomy (LAVH) (~01/23/23) S/P laparoscopy S/P laparotomy Social History household members: spouse and children number of children: 3 current occupational exposures/hazards: No sexually active: Yes Smoking Status: Former smoker alcohol intake: never substance use type: does not use what type of physical activity do you participate in: walking seatbelt use: always do you feel safe at home: Yes additional social history: spouse - Cy Vital Signs Vital Signs Vital Signs: 02/07/23 04:13 02/07/23 06:12 02/07/23 08:00 Temperature 98.1 F Temperature Source Oral Pulse Rate 77 63 Respiratory Rate 15 15 14 Blood Pressure 169/97 H 159/89 H Blood Pressure Mean 121 112 Pulse Ox 98 100 Oxygen Delivery Method Room Air Room Air Weight Weight: 170 lb 10.205 oz Body Mass Index (BMI) 32.2 ROS Constitutional Constitutional: Reports systems reviewed and no addt'l complaints, except as documented Gastrointestinal Gastrointestinal: Denies bloating, constipation, cramping, diarrhea, nausea or vomiting Genitourinary Genitourinary: Denies difficulty urinating or flank pain Physical Exam Const alert, oriented x3 and no apparent distress General Appearance: cooperative and comfortable Resp normal respiratory effort Cardio regular rate GI normal to inspection, nondistended, normoactive bowel sounds Palpation: soft Rectal Exam: other Other Details: non-tender. Incision is clean, dry, and intact. external exam normal Narrative: The cuff sutures are intact. There is one small area between the lower stitches on the posterior cuff that has a small site of oozing. Monsel's soln was applied and pressure held for 5 minutes. The pressure was relieved and another 1 minute for observation. No further bleeding seen. More monsel past applied to empty the jar. Lab / Micro Data Result Diagrams: 02/07/23 04:54 02/07/23 04:54 Labs: Laboratory Results - last 24 hr 02/07/23 04:54: WBC 10.1, RBC 4.30, Hgb 12.3, Hct 39.2, MCV 91.2, MCH 28.6, MCHC 31.4 L, RDW Std Deviation 50.5 H, RDW Coeff of Mehnaz 15.1 H, Plt Count 336, MPV 9.0, Immature Gran % (Auto) 0.200, Neut % (Auto) 55.1, Lymph % (Auto) 24.2, [place] % (Auto) 5.1, Eos % (Auto) 13.9 H, Baso % (Auto) 1.5 H, Absolute Neuts (auto) 5.5, Absolute Lymphs (auto) 2.43, Nucleated RBC % 0 02/07/23 04:54: PT 12.6, INR 0.9, APTT 30.0 02/07/23 04:54: Sodium 141, Potassium 4.7, Chloride 111 H, Carbon Dioxide 27.0, Anion Gap 3 L, BUN 20 H, Creatinine 0.70, Estim Creat Clear Calc 78.20, Est GFR (MDRD) Af Amer 118, Est GFR (MDRD) Non-Af 98, BUN/Creatinine Ratio 28.7 H, Glucose 99, Calcium 8.6 Radiology Impression Abdomen/Pelvis CT 02/07/23 04:40 IMPRESSION: 1. Pelvic abscesses extending from postoperative vaginal cuff into bilateral adnexa. 2. Likely reactive thickening of adjacent urinary bladder and sigmoid colon, with superimposed cystitis and colitis not excluded. 3. There is colonic diverticulosis but thickening of sigmoid colon does not appear to be related to diverticulitis, within limitations of regional infectious changes described above. 4. Indeterminate small low-attenuation liver lesions. Favor benign cysts but follow-up as clinically warranted. Electronically Signed: Ismael Catalan MD at 6:32 EDT , Charges/Coding Visit Charges Office Visits / Consults: 98821 ED Visit; Moderate Severity
== END 2023-02-07 08:19 | disposition home or self-care (01) ==
PROVIDERS: Emergency Provider Emergency Medicine; Visit Provider Emergency Medicine
DX: N99.821 Postprocedural hemorrhage of a genitourinary system organ or structure following other procedure (principal); D68.00 Von Willebrand disease, unspecified; N73.9 Female pelvic inflammatory disease, unspecified; Z87.891 Personal history of nicotine dependence; M51.37 Other intervertebral disc degeneration, lumbosacral region; K57.30 Diverticulosis of large intestine without perforation or abscess without bleeding; I10 Essential (primary) hypertension
CPT/HCPCS: 74177; 80048; 85025; 85610; 85730; 96360; 96361; 99283; J7030; Q9967